=== PATIENT | female | born 1995 | race American Indian/Alaskan Native ===

== ENCOUNTER 2018-07-13 19:33 | Emergency (ER) | payer MEDICAID, OTHER ==
[2018-07-13 19:47] VITALS: BP 124/79
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
[2018-07-13] MEDS ORDERED: NORCO 5/325 ONE (22:17)
[2018-07-13] MEDS ORDERED: NORCO 5/325 PO ONE (22:21)
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
== END 2018-07-13 23:30 | disposition home or self-care (01) ==
LOC: ED 19:33
DX: R51 Headache (principal); R09.81 Nasal congestion; I10 Essential (primary) hypertension
CPT/HCPCS: 70450; 99283

== ENCOUNTER 2018-10-05 11:09 | Emergency (ER) | payer SELFPAY ==
--- NOTE | 2018-10-05 11:22 | Emergency Department Report ---
Blank Doc - Documentation Documentation: This is a 23-year-old female that presents with headache. Patient stated has history of headaches and had an MRI within normal limits. Recent CT results are unremarkable 3 months ago. Denies any trauma or injuries. Denies any visual changes or worst headache. Stated is similar to previous headaches. Was seen in [facility] 2 days ago for same but never felt her previous. This initial assessment/diagnostic orders/clinical plan/treatment(s) is/are subject to change based on patient's health status, clinical progression and re- assessment by fellow clinical providers in the ED. Further treatment and workup at subsequent clinical providers discretion. Patient/guardians urged not to elope from the ED as their condition may be serious if not clinically assessed and managed. Initial orders include: 1- Patient sent to [facility] for further evaluation and treatment
[2018-10-05 11:24] VITALS: BP 107/75
== END 2018-10-05 11:44 | disposition left against medical advice (07) ==
LOC: ED 11:09
DX: R51 Headache (principal); Z53.21 Procedure and treatment not carried out due to patient leaving prior to being seen by health care provider